=== PATIENT | male | born 1960 | race Caucasian/White ===

== ENCOUNTER 2018-03-20 14:24 | Outpatient (REF) | payer MEDICAID, SELFPAY ==
[2018-03-23 12:41] LABS: Lyme Ab w Rflx to Lyme Confirm Negative
== END 2018-03-20 14:44 ==
LOC: NCHCN 14:24
PROVIDERS: PCP Nurse Practitioner Family; Visit Provider Family Medicine
DX: M25.50 Pain in unspecified joint (principal)
CPT/HCPCS: 86618

== ENCOUNTER 2020-02-16 10:24 | Outpatient (REF) | payer MEDICAID, SELFPAY ==
[2020-02-16 22:36] LABS: ALT 28 U/L (16-63); AST 21 U/L (15-37); Albumin 4.2 g/dL (3.4-5.0); Alkaline Phosphatase 70 U/L (46-116); Anion Gap 5.2 mmol/L (3-11); BUN 26 mg/dL (7-18); Bilirubin, Total 0.7 mg/dL (0.2-1.0); CO2 31.8 mmol/L (21.0-32.0); CREATININE 1.11 mg/dL (0.70-1.30); Calculated LDL 141 mg/dL (<100); Chloride 104 mmol/L (98-107); Cholesterol 214 mg/dL (<200); Glucose 102 mg/dL (74-106); HDL Cholesterol 57 mg/dL (40-60); Potassium 4.2 mmol/L (3.5-5.1); Sodium 141 mmol/L (136-145); Total Protein 6.9 g/dL (6.4-8.2); Triglyceride 83 mg/dL (<150)
[2020-02-16 22:43] LABS: Calcium 9.2 mg/dL (8.5-10.1)
== END 2020-02-16 10:44 ==
LOC: NCHCN 10:24
PROVIDERS: PCP Nurse Practitioner Family; Visit Provider Family Medicine
DX: E78.5 Hyperlipidemia, unspecified (principal); I10 Essential (primary) hypertension; E66.9 Obesity, unspecified; Z00.00 Encounter for general adult medical examination without abnormal findings
CPT/HCPCS: 80053; 80061

== ENCOUNTER 2020-04-19 10:00 | Outpatient (REF) | payer MEDICAID, SELFPAY ==
[2020-04-19 22:55] LABS: Hemoglobin A1C 5.9 % (<5.7)
[2020-04-19 23:06] LABS: ALT 33 U/L (16-63); AST 31 U/L (15-37); Albumin 4.2 g/dL (3.4-5.0); Alkaline Phosphatase 80 U/L (46-116); Bilirubin, Total 0.8 mg/dL (0.2-1.0); Calculated LDL 86 mg/dL (<100); Cholesterol 158 mg/dL (<200); HDL Cholesterol 64 mg/dL (40-60); Total Protein 6.8 g/dL (6.4-8.2); Triglyceride 43 mg/dL (<150)
[2020-04-20 18:10] LABS: Glucose 109 mg/dL (74-106)
== END 2020-04-19 10:20 ==
LOC: NCHCN 10:00
PROVIDERS: PCP Nurse Practitioner Family; Visit Provider Family Medicine
DX: R73.01 Impaired fasting glucose (principal); E78.5 Hyperlipidemia, unspecified; N18.30 Chronic kidney disease, stage 3 unspecified; I12.9 Hypertensive chronic kidney disease with stage 1 through stage 4 chronic kidney disease, or unspecified chronic kidney disease; Z86.59 Personal history of other mental and behavioral disorders
CPT/HCPCS: 80061; 80076; 82947; 83036

== ENCOUNTER 2021-04-18 14:10 | Outpatient (REF) | payer MEDICAID, SELFPAY ==
[2021-04-18 16:10] LABS: ALT 34 U/L (16-63); AST 23 U/L (15-37); Albumin 4.3 g/dL (3.4-5.0); Alkaline Phosphatase 92 U/L (46-116); Anion Gap 7.2 mmol/L (3-11); BUN 22 mg/dL (7-18); Bilirubin, Total 0.7 mg/dL (0.2-1.0); CO2 32.8 mmol/L (21.0-32.0); CREATININE 1.3 mg/dL (0.70-1.30); Calcium 9.4 mg/dL (8.5-10.1); Calculated LDL 82 mg/dL (<100); Chloride 103 mmol/L (98-107); Cholesterol 152 mg/dL (<200); Estimated GFR 55.94 (mL/min/1.73m2); Glucose 110 mg/dL (74-106); HDL Cholesterol 49 mg/dL (40-60); Sodium 143 mmol/L (136-145); Total Protein 7.1 g/dL (6.4-8.2); Triglyceride 107 mg/dL (<150)
== END 2021-04-18 14:11 | disposition home or self-care (01) ==
LOC: NCHCN 14:10
PROVIDERS: PCP Nurse Practitioner Family; Visit Provider Family Medicine
DX: R73.03 Prediabetes (principal); E78.5 Hyperlipidemia, unspecified; E66.9 Obesity, unspecified; Z00.00 Encounter for general adult medical examination without abnormal findings
CPT/HCPCS: 80053; 80061; 83036

== ENCOUNTER 2022-05-20 22:02 | Outpatient (REF) | payer MEDICAID, SELFPAY ==
[2022-05-20 21:34] LABS: Hemoglobin A1C 6.1 % (<5.7)
[2022-05-20 21:37] LABS: ALT 37 U/L (16-63); AST 36 U/L (15-37); Alkaline Phosphatase 101 U/L (46-116); BUN 18 mg/dL (7-18); Bilirubin, Total 0.7 mg/dL (0.2-1.0); CREATININE 1.2 mg/dL (0.70-1.30); Calcium 9.4 mg/dL (8.5-10.1); Calculated LDL 68 mg/dL (<100); Chloride 100 mmol/L (98-107); Cholesterol 151 mg/dL (<200); Estimated GFR 67.95 (mL/min/1.73m2); Glucose 117 mg/dL (74-106); HDL Cholesterol 57 mg/dL (40-60); Potassium 3.8 mmol/L (3.5-5.1); Sodium 138 mmol/L (136-145); Total Protein 7.2 g/dL (6.4-8.2); Triglyceride 133 mg/dL (<150)
[2022-05-20 21:59] LABS: Vitamin D 25 Total 20.5 ng/mL (30-100)
== END 2022-05-20 22:03 | disposition home or self-care (01) ==
LOC: NCHCN 22:02
PROVIDERS: PCP Nurse Practitioner Family; Visit Provider Family Medicine
DX: R73.03 Prediabetes (principal); E78.5 Hyperlipidemia, unspecified; I10 Essential (primary) hypertension; F10.11 Alcohol abuse, in remission; N18.30 Chronic kidney disease, stage 3 unspecified
CPT/HCPCS: 80053; 80061; 82306; 83036

== ENCOUNTER 2023-05-21 13:44 | Outpatient (REF) | payer OTHER, SELFPAY ==
--- OUTSIDE RECORDS SUMMARY | 2023-05-21 13:46 | XMS_ITS | CCD ---
Author Name Unknown Address [address] [place] [address] [id number] Organization Unknown Address [address] [place] [address] [id number] Care Team Providers Care Pharmacist Apprentice Name Role Phone ARRON PEREZ Attending Physician [phone] Vital Signs Vital Sign Value Unit Date/Time Recent/Initial ? BMI (Body Mass Index) 30.71 kg/m^2 12/25/2022 11: 13 Initial VS Weight Measured 214 lbs 12/25/2022 11:13 Ini tial VS Height 70 in 12/25/2022 11:13 Initial VS BSA (Body Surface Area) 2.19 m^2 12/25/2022 1 1:13 Initial VS BP Systolic 124 mmHg 01/08/2023 12:29 Initial VS BP Diastolic 81 mmHg 01/08/2023 12:29 Initia l VS Respiratory Rate 18 bpm 01/08/2023 12:29 In itial VS Heart Rate 62 bpm 01/08/2023 12:29 Initial VS O2 % BldC Oximetry 95 % 01/08/2023 12:29 Initial VS Body Temperature 35.8 degrees 01/08/2023 12:29 In itial VS Allergies Allergy Code Allergy Type Reaction Status SULFA (sulfonamide) 0 Drug allergy CHILDHOOD, UNS URE OF RXN Active NEOPRENE {Clinical monitoring unavailable} 0 Allergy to substance RASH Act lawson Procedures Procedure Code Procedure Type Date Arthroplasty, Acetabular/Pro ximal Femoral Prosthetic Replacement, w/wo Autograft/Allograft 07162 CPT Anesthesia, Open Proc Involv ing Hip Joint; Total Hip Arthroplasty 51305 CPT 01/08/2023 History of Immunizations Unknown or Not Available. Problems Unknown or Not Available. Results Unknown or Not Available. Active Medications Medications Administered During Visit Medication Dose Units Frequency Route Date/Time of Last Dose LACTATED RINGERS 1000ML 1000 ML X1 01/08/2023 10:38 GABAPENTIN CAPSULE: 300MG 300 MG X1 PO 01/08/2023 10:37 ACETAMINOPHEN TABLET: 325MG 975 MG X1 PO 01/08/2023 10:37 MELOXICAM TAB: 7.5MG 7.5 MG X1 PO 01/08/2023 10:38 MIDAZOLAM INJ SDV: 2MG/2ML 2 MG X1 IVP 01/08/2023 09:30 OxyCODONE TABLET no apap added: 5mg 5 MG PRN IN PACU Q4H PO 01/08/2023 1 3:21 KETOROLAC INJ SDV: 30MG/1ML 30 MG X1 IV P 01/08/2023 12:52 CeFAZolin IVPB FROZEN PREMIX : 2GM/100ML 2 GM X1 01/08/2023 13:1 8 DexAMETHasone INJ SDV PF: 10MG/1ML 10 MG X1 IVP 01/08/2023 13:0 4 Encounters Encounter Diagnosis Diagnosis Code Start Date Unilateral primary osteoarthritis, left hip M161 2 01/08/2023 Social History Smoking Status Code Start Date End Date Never smoker [id number] Patient Decision Aids Unknown or Not Available. Discharge Instructions You were admitted to [facility] on 01/08/2023 08:02 with a principal diagnosis of Unilateral primary osteoarthritis, left hip You had the following procedures done:Arthroplasty, Acetabular/Proximal Femoral Prosthetic Replacement, w/wo Autograft/AllograftAnesthesia, Open Proc Involving Hip Joint; Total Hip Arthroplasty You were discharged from [facility] on 01/08/2023 15:12 Should you have any questions prior to discharge, please contact a member of your healthcare team. If you have left the hospital and have any questions, please contact your primary care physician. Chief Complaint and Reason For Visit Chief Complaint Date of Onset LEFT KELLEN TOVAR AND NEPH POLARSTEM R3 C UP , 120MIN OP Function Status Unknown or Not Available. Plan of Care Unknown or Not Available. Referral/Transition of Care Unknown or Not Available.
--- OUTSIDE RECORDS SUMMARY | 2023-05-21 13:46 | XMS_ITS | CCD ---
Author Name Unknown Address [address], [place] [id number] Organization Unknown Address [address], [place] [id number] Care Team Providers Care Spice Cleaner Name Role Phone ARRON PEREZ Attending Physician [phone] ARRON PEREZ Rounding (Secondary) Physician [phone] Vital Signs Unknown or Not Available. Allergies Allergy Code Allergy Type Reaction Status SULFA (sulfonamide) 0 Drug allergy CHILDHOOD, UNS URE OF RXN Active NEOPRENE {Clinical monitoring unavailable} 0 Allergy to substance RASH Act lawson Procedures Unknown or Not Available. History of Immunizations Unknown or Not Available. Problems Unknown or Not Available. Results Unknown or Not Available. Active Medications Unknown or Not Available. Medications Administered During Visit Unknown or Not Available. Encounters Encounter Diagnosis Diagnosis Code Start Date Aftercare [id number] 02/11/2023 Social History Smoking Status Code Start Date End Date Never smoker [id number] Patient Decision Aids Unknown or Not Available. Discharge Instructions You were admitted to [facility] on 02/11/2023 10:45 with a principal diagnosis of Aftercare following joint replacement surgery You were discharged from [facility] on 02/11/2023 00:00 Should you have any questions prior to discharge, please contact a member of your healthcare team. If you have left the hospital and have any questions, please contact your primary care physician. Chief Complaint and Reason For Visit Unknown or Not Available. Function Status Unknown or Not Available. Plan of Care Unknown or Not Available. Referral/Transition of Care Unknown or Not Available.
--- OUTSIDE RECORDS SUMMARY | 2023-05-21 13:46 | XMS_ITS | CCD ---
Author Name Unknown Address [address] [place], [place] [id number] Organization Unknown Address [address] [place], [place] [id number] Care Team Providers Care Early Childhood Coordinator Name Role Phone ARRON PEREZ Attending Physician [phone] ARRON PEREZ Rounding (Secondary) Physician [phone] Vital Signs Unknown or Not Available. 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 Discharge Instructions You were admitted to [facility] on 01/08/2023 01:00 with a principal diagnosis of Unilateral primary osteoarthritis, left hip You were discharged from [facility] on 01/08/2023 01:01 Should you have any questions prior to [...]
--- OUTSIDE RECORDS SUMMARY | 2023-05-21 13:47 | XMS_ITS | CCD ---
Author Name Unknown Address [address] [place], [place] [id number] Organization Unknown Address [address], [place] [id number] Care Team Providers Care Hot Dip Plater Name Role Phone ARRON PEREZ Attending Physician [phone] ARRON PEREZ Rounding (Secondary) Physician [phone] Vital Signs Unknown or Not Available. Allergies [...] Diagnosis Diagnosis Code Start Date Idiopathic osteoarthritis [id number] 2022 Social History Smoking Status Code Start Date End Date Never smoker [id number] Patient Decision Aids Unknown or Not Available. Discharge Instructions You were admitted to [facility] on 09/03/2022 00:00 with a principal diagnosis of Unilateral primary osteoarthritis, left hip You were discharged from [facility] on 09/03/2022 00:00 Should you have any questions prior [...]
--- OUTSIDE RECORDS SUMMARY | 2023-05-21 13:47 | XMS_ITS | CCD ---
Author Name Unknown Address [address] [place] [address] [id number] Organization Unknown Address [address] [place], [place] [phone] Care Team Providers Care Hydraulic Elevator Constructor Name Role Phone YANY GONZALEZ Attending Physician [phone] YANY GONZALEZ Rounding (Secondary) Physician [phone] Vital Signs Unknown or Not Available. Allergies [...] Encounters Encounter Diagnosis Diagnosis Code Start Date Artificial knee joint present [id number] Social History Smoking Status Code Start Date End Date Never smoker [id number] Patient Decision Aids Unknown or Not Available. Discharge Instructions You were admitted to [facility] on 10/15/2021 16:12 with a principal diagnosis of Presence of left artificial knee joint You were discharged from [facility] on 10/15/2021 00:00 Should you have any questions prior [...]
--- OUTSIDE RECORDS SUMMARY | 2023-05-21 13:47 | XMS_ITS | CCD ---
Author Name Unknown Address [address] [place] [id number] Organization Unknown Address [address] [place], [place] [phone] Care Team Providers Care Cemetery Counselor Name Role Phone ARRON PEREZ MD Attending Physician [phone] Vital Signs Unknown or Not Available. Allergies [...] Encounters Encounter Diagnosis Diagnosis Code Start Date Refusal of treatment by patient [id number] 12/06/2020 Social History Smoking Status Code Start Date End Date Never smoker [id number] Patient Decision Aids Unknown or Not Available. Discharge Instructions You were admitted to [facility] 01 on 12/06/2020 16:06 with a principal diagnosis of Procedure and treatment not carried out because of patient's decision for unspecified reasons You were discharged from [facility] on 12/06/2020 16:06 Should you have any questions prior to [...]
--- OUTSIDE RECORDS SUMMARY | 2023-05-21 13:47 | XMS_ITS | CCD ---
Author Name Unknown Address [address] [place] [address] [id number] Organization Unknown Address [address] [place], [place] [phone] Care Team Providers Care Well Point Pumping Supervisor Name Role Phone ARRON PEREZ MD Attending Physician [phone] Vital Signs Unknown or Not Available. Allergies [...] Encounter Diagnosis Diagnosis Code Start Date Aftercare [id number] 12/21/2020 Social History Smoking Status Code Start Date End Date Never smoker [id number] Patient Decision Aids Unknown or Not Available. Discharge Instructions You were admitted to [facility] on 12/21/2020 15:28 with a principal diagnosis of Aftercare following joint replacement surgery You were discharged from [facility] on 12/21/2020 15:28 Should you have any questions prior to [...]
--- OUTSIDE RECORDS SUMMARY | 2023-05-21 13:48 | XMS_ITS | CCD ---
Author Name Unknown Address [address] [place] [id number] Organization Unknown Address [address] [place] [address] [phone] Care Team Providers Care Weatherization And Housing Inspector Name Role Phone ARRON PEREZ MD Attending Physician [phone] Vital Signs Vital Sign Value Unit Date/Time Recent/Initial ? BP Systolic 126 mmHg 12/06/2020 08:12 Initial VS BP Diastolic 89 mmHg 12/06/2020 08:12 Initia l VS Respiratory Rate 10 bpm 12/06/2020 08:12 In itial VS Heart Rate 71 bpm 12/06/2020 08:12 Initial VS O2 % BldC Oximetry 97 % 12/06/2020 08:12 Initial VS Body Temperature 36.4 degrees 12/06/2020 08:12 In itial VS Allergies Allergy Code Allergy Type Reaction Status SULFA (sulfonamide) 0 Drug allergy CHILDHOOD, UNS URE OF RXN Active NEOPRENE {Clinical monitoring unavailable} 0 Allergy to substance RASH Act lawson Procedures Procedure Code Procedure Type Date Manipulation, Knee Joint Under General Anesthesia 2757 0 CPT 12/06/2020 Anesthesia, All Closed Proc On Knee Joint 66789 CPT 12/06/2020 History of Immunizations Unknown or Not Available. Problems Unknown or Not Available. Results Unknown or Not Available. 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 Discharge Instructions You were admitted to [facility] on 12/06/2020 06:26 with a principal diagnosis of Ankylosis, left knee You had the following procedures done:Manipulation, Knee Joint Under General AnesthesiaAnesthesia, All Closed Proc On Knee Joint You were discharged from [facility] on 12/06/2020 08:46 Should you have any questions prior to discharge, please contact a member of your healthcare team. If you have left the hospital and have any questions, please contact your primary care physician. Chief Complaint and Reason For Visit Chief Complaint Date of Onset LEFT KNEE DONNA Function Status Unknown or Not Available. Plan of Care Unknown or Not Available. Referral/Transition of Care Unknown or Not Available.
--- OUTSIDE RECORDS SUMMARY | 2023-05-21 13:48 | XMS_ITS | CCD ---
Author Name Unknown Address [address] [place] [address] [id number] Organization Unknown Address [address] [place], [place] [phone] Care Team Providers Care Middle Stitcher Name Role Phone ARRON PEREZ MD Attending Physician [phone] Vital Signs Unknown or Not Available. Allergies [...] Diagnosis Code Start Date Ankylosis, left knee Y75848 12/04/2020 Social History Smoking Status Code Start Date End Date Never smoker [id number] Patient Decision Aids Unknown or Not Available. Discharge Instructions You were admitted to [facility] on 12/04/2020 08:01 with a principal diagnosis of Ankylosis, left knee You were discharged from [facility] on 12/04/2020 08:01 Should you have any questions prior to [...]
[2023-05-21 15:07] LABS: Hemoglobin A1C 6.2 % (<5.7)
[2023-05-21 15:08] LABS: ALT 35 U/L (16-63); AST 34 U/L (15-37); Albumin 3.8 g/dL (3.4-5.0); Alkaline Phosphatase 94 U/L (46-116); Anion Gap 7.3 mmol/L (3-11); BUN 22 mg/dL (7-18); Bilirubin, Total 0.7 mg/dL (0.2-1.0); CO2 31.7 mmol/L (21.0-32.0); CREATININE 1.1 mg/dL (0.70-1.30); Calcium 9.3 mg/dL (8.5-10.1); Calculated LDL 78 mg/dL (<100); Chloride 102 mmol/L (98-107); Cholesterol 143 mg/dL (<200); Estimated GFR 74.96 (mL/min/1.73m2); Glucose 111 mg/dL (74-106); HDL Cholesterol 54 mg/dL (40-60); Potassium 3.5 mmol/L (3.5-5.1); Sodium 141 mmol/L (136-145); Total Protein 6.8 g/dL (6.4-8.2); Triglyceride 58 mg/dL (<150)
[2023-05-21 15:28] LABS: Vitamin D 25 Total 21.8 ng/mL (30-100)
== END 2023-05-21 13:45 | disposition home or self-care (01) ==
LOC: NCHCN 13:44
PROVIDERS: PCP Nurse Practitioner Family; Visit Provider Family Medicine
DX: E55.9 Vitamin D deficiency, unspecified (principal); R73.03 Prediabetes; E78.5 Hyperlipidemia, unspecified; R79.89 Other specified abnormal findings of blood chemistry
CPT/HCPCS: 80053; 80061; 82306; 83036

== ENCOUNTER 2024-06-18 09:09 | Outpatient (REF) | payer OTHER, SELFPAY ==
[2024-06-18 15:21] LABS: ALT 27 U/L (16-63); AST 28 U/L (15-37); Albumin 3.9 g/dL (3.4-5.0); Alkaline Phosphatase 91 U/L (46-116); Anion Gap 6.2 mmol/L (3-11); BUN 18 mg/dL (7-18); CO2 32.8 mmol/L (21.0-32.0); CREATININE 1.1 mg/dL (0.70-1.30); Calcium 9.7 mg/dL (8.5-10.1); Calculated LDL 64 mg/dL (<100); Chloride 103 mmol/L (98-107); Cholesterol 149 mg/dL (<200); Glucose 106 mg/dL (74-106); HDL Cholesterol 59 mg/dL (40-60); Sodium 142 mmol/L (136-145); Total Protein 7.2 g/dL (6.4-8.2); Triglyceride 130 mg/dL (<150)
[2024-06-18 16:31] LABS: Bilirubin, Total 0.72 mg/dL (0.2-1.0); Vitamin D 25 Total 42.4 ng/mL (30-100)
== END 2024-06-18 09:10 | disposition home or self-care (01) ==
LOC: NCHCN 09:09
PROVIDERS: PCP Nurse Practitioner Family; Visit Provider Family Medicine
DX: I10 Essential (primary) hypertension (principal); E78.5 Hyperlipidemia, unspecified; E55.9 Vitamin D deficiency, unspecified; R73.03 Prediabetes
CPT/HCPCS: 80053; 80061; 82306; 83036